=== PATIENT | male | born 1965 | race Caucasian/White ===

== ENCOUNTER 2021-11-18 10:50 | Outpatient (CLI) | payer OTHER | END 2021-11-18 11:04 | disposition home or self-care (01) | LOC: RAD 10:50 | DX: R05.8 Other specified cough (principal); Z03.818 Encounter for observation for suspected exposure to other biological agents ruled out ==

== ENCOUNTER 2022-08-22 12:58 | Outpatient (CLI) | payer OTHER | END 2022-08-22 14:04 | disposition home or self-care (01) | LOC: RAD 12:58 | DX: S99.912A Unspecified injury of left ankle, initial encounter (principal); R60.9 Edema, unspecified ==

== ENCOUNTER 2023-08-10 08:05 | Outpatient (CLI) | payer OTHER | END 2023-08-10 08:12 | disposition home or self-care (01) | LOC: RAD 08:05 | PROVIDERS: ATTEND Otolaryngology Otolaryngology/Facial Plastic Surgery | DX: Z01.89 Encounter for other specified special examinations (principal); J45.998 Other asthma ==